=== PATIENT | male | born 1980 | race Caucasian/White ===

== ENCOUNTER 2021-10-16 12:19 | Emergency (ER) | payer OTHER, SELFPAY ==
--- NOTE | ~2021-10-16 | XR_ITS ---
XR lumbar spine 2-3V 10/16/2021 14:09 Indication: Low back pain Procedure: 3 views lumbar spine Comparison: No prior studies for comparison. Findings: There is mild disc narrowing at L5-S1. No fracture, subluxation or dislocation. No evidence for spondylolisthesis. Pedicles intact. There are changes of ventral abdominal wall hernia repair. T here is mild endplate degenerative change at L3-4 and L4-5. Impression: 1: Mild lumbar spondylosis. Reviewed, dictated and finalized at location A. 

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
[2021-10-16 12:35] VITALS: BP 131/88; PULSE 76; RESP 16; TEMP 36.6; O2SAT 100
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
[2021-10-16] MEDS: ONDANSETRON HCL ODT 4 MG TABLET PO (14:32)
[2021-10-16] MEDS: HYDROmorphone HCL INJ (*CRX) 2 MG/ML VIAL 1 MG IM (14:32)
--- NOTE | 2021-10-16 14:34 | PC.NURSE ---
patient states he has a ride home. rn to administer pain medication.
[2021-10-16 14:54] VITALS: BP 141/90; PULSE 78; RESP 16; TEMP 36.8; O2SAT 98
== END 2021-10-16 15:05 | disposition home or self-care (01) ==
PROVIDERS: Emergency Provider Internal Medicine Critical Care Medicine
DX: M47.812 Spondylosis without myelopathy or radiculopathy, cervical region (principal); M47.816 Spondylosis without myelopathy or radiculopathy, lumbar region
CPT/HCPCS: 72100; 72125; 96372; 99283; A9270; J1170

== ENCOUNTER 2021-12-09 08:51 | Outpatient (CLI) | payer OTHER, SELFPAY ==
--- NOTE | ~2021-12-09 | XR_ITS ---
EXAMINATION: XR wrist LT 2V EXAM DATE: 12/09/2021 09:16 INDICATION: Generalized wrist pain. TECHNIQUE: Left wrist frontal, frontal with ulnar deviation, oblique and lateral projections obtained and reviewed. Correlation is made to left hand x-ray 03/20/2017. 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 Lunate is oriented such that patient probably has dorsal intercalated segmental instability (DISI). There is development of mild to moderate radiocarp al joint osteoarthritis, appears to have progressed compared to 2017. This potentially could be postt raumatic etiology given scapholunate dissociation. There are no acute fractures or dislocations ident ified. There is no subcutaneous gas. The soft tissue is unremarkable. There are no radiopaque for eign bodies. IMPRESSION: 1. Scapholunate dissociation, DISI. 2. 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 Reviewed, dictated and finalized at location B.
[2021-12-09 09:09] LABS: Basophils Absolute Auto 0.03 K/mm3 (0.00-0.10); Basophils Percent Auto 0.6 % (0.0-1.0); Eosinophils Absolute Auto 0.08 K/mm3 (0.02-0.50); Eosinophils Percent Auto 1.5 % (1.0-6.0); Hematocrit 44.7 % (40.0-54.0); Hemoglobin 15.4 g/dL (14.0-18.0); Immature Granulocyte Absolute 0.01 K/mm3 (0.00-0.00); Immature Granulocyte Percent A 0.2 % (0.0-0.0); Lymphocytes Absolute Auto 1.79 K/mm3 (1.10-4.50); Lymphocytes Percent Auto 33.5 % (18.0-42.0); Mean Corpuscular HGB Conc 34.5 g/dL (32.0-36.0); Mean Corpuscular Hemoglobin 33.1 pg (27.0-31.0); Mean Corpuscular Volume 96.1 fL (78.0-102.0); Mean Platelet Volume 9.9 fl (8.7-11.0); Monocytes Absolute Auto 0.52 K/mm3 (0.10-0.90); Monocytes Percent Auto 9.7 % (2.0-11.0); Neutrophils Absolute Auto 2.9 K/mm3 (1.7-7.2); Neutrophils Percent Auto 54.5 % (50.0-70.0); Platelet Count Result 262 K/mm3 (150-420); Red Blood Count 4.65 M/mm3 (4.70-6.10); White Blood Count 5.3 K/mm3 (4.8-10.8)
[2021-12-09 09:39] LABS: Alanine Aminotransferase 23 U/L (16-63); Albumin Level 4.2 g/dL (3.4-5.0); Alkaline Phosphatase 83 U/L (46-116); Anion Gap 8 mmol/L (8-16); Aspartate Amino Transferase < 10 U/L (15-37); Bilirubin,Total 0.5 mg/dL (0.00-1.00); Blood Urea Nitrogen 20 mg/dL (7-18); Calcium 9.2 mg/dL (8.5-10.1); Carbon Dioxide 27 mmol/L (21-32); Chloride 103 mmol/L (98-108); Estimated Glomerular Filt Rate > 60; Glucose 101 mg/dL (70-99); Osmolality Calculated 288 mOsm/kg (285-295); Potassium 4.1 mmol/L (3.5-5.1); Sodium 138 mmol/L (136-145); Total Protein 6.9 g/dL (6.4-8.2)
[2021-12-13 16:21] LABS: Testosterone Free 99.8 pg/mL (35.0-155.0); Testosterone Total 670 ng/dL (250-1100)
[2021-12-13 18:03] LABS: Vitamin D 25 Hydroxy 19 ng/mL (30-100)
== END 2021-12-09 08:52 | disposition home or self-care (01) ==
LOC: CHSLAB 08:54
PROVIDERS: PCP Nurse Practitioner Family; Visit Provider Nurse Practitioner Family
DX: R53.83 Other fatigue (principal); F41.1 Generalized anxiety disorder
CPT/HCPCS: 36415; 73100; 80053; 82306; 84402; 84403; 85025

== ENCOUNTER 2022-04-24 11:34 | Outpatient (CLI) | payer SELFPAY ==
--- NOTE | ~2022-04-24 | XR_ITS ---
EXAM: XR lumbar spine 2-3V DATE: 04/24/2022 11:51 HISTORY: LT LEG SCIATICA,NKI,X1MO . COMPARISON: 10/16/2019. FINDINGS: 5 nonrib-bearing lumbar-type vertebral bodies. Pedicles intact. 3 mm retrolisthesis of L4 on L5. Vertebral body heights preserved. Mild L4-5 and moderate L5-S1 disc space narrowing and margin al osteophytosis. Normal facets and posterior elements. No fracture or dislocation. Hernia mesh soft tissue anchors. IMPRESSION: Grade 1 retrolisthesis of L4 on L5. Lower lumbar degenerative disc changes. Reviewed, dictated and finalized at location K.
== END 2022-04-24 11:35 | disposition home or self-care (01) ==
LOC: CHSIMG 11:36
PROVIDERS: PCP Family Medicine; Visit Provider Nurse Practitioner Family
DX: M54.30 Sciatica, unspecified side (principal)
CPT/HCPCS: 72100

== ENCOUNTER 2025-01-11 10:05 | Emergency (ER) | payer SELFPAY ==
--- NOTE | ~2025-01-11 | CT_ITS ---
Noncontrast CT scan of the lumbar spine CLINICAL HISTORY: Back pain radiating to buttock TECHNIQUE: Axial noncontrast imaging of the lumbar spine was performed. Sagittal and coronal reformat damian images were constructed. Dose reduction technique was used on this scan by utilizing automated ex posure control and iterative reconstruction technique. The dose-length product (DLP) was 355.26 mGy-c m. FINDINGS: There is straightening of the normal lumbar lordosis. No fracture seen. There is minimal gr jennifer 1 retrolisthesis of L4 over L5. At L1-L2, there is no disc bulge or herniation. There is mild facet hypertrophy. No spinal canal sten osis or neural foraminal narrowing. At L2-L3, there is no disc bulge or herniation. There is mild facet arthropathy. No central canal ashley nosis or neural foraminal narrowing. At L3-L4, there is mild disc bulge with mild to moderate facet hypertrophy. Probable minimal central canal stenosis. There is moderate to severe left neural foraminal narrowing, and mild to moderate rig ht neural foraminal narrowing. At L4-L5, there is degenerative disc narrowing. There is disc bulge and facet arthropathy. There is m ild central canal stenosis. There is moderate right neural foraminal narrowing, and mild left neural foraminal narrowing. At L5-S1, there is mild disc bulge and mild facet arthropathy. No central canal stenosis. There is mo derate to severe bilateral neural foraminal narrowing. Paravertebral soft tissues are unremarkable. Postoperative change noted at the rectum. Prior herniorr haphy at present. Impression: Moderate degenerative spondylosis from L3 through S1, as detailed above. Postoperative changes, as above. Reviewed, dictated and finalized at location M. Impression: Moderate degenerative spondylosis from L3 through S1, as detailed above. Postoperative changes, as above.
[2025-01-11 10:05] VITALS: BP 152/103; PULSE 101; RESP 16; TEMP 36.6; O2SAT 97
--- OUTSIDE RECORDS SUMMARY | 2025-01-11 10:08 | XMS_ITS | Continuity of Care Document ---
Author Organization [facility] Address [address] [place] [address] Phone Care Team Providers Care Director Cloud Transformation Name Role Phone Talia PT, DPT, Norm Unavailable Unavailable Advance Directives Directive Yes / No Effective Date File Name No Information Encounters Encounter Description Practice Location Reason(s) For Visit Diagnoses Date Provider Providers Copied on Encounter [facility], [address], [place], [place], [id number], [place] tel:[phone] [place] No Information 0 Talia Zheng. . Family History Family Member Type Diagnosis Age At Onset No Information Payers Payer name Insurance type Covered green party ID Authoriza tion(s) No Information Social History Type Description Quantity Date Captured Comments Sex Male Smoking Status No Information Chief Complaint And Reason For Visit No Information Reason For Referral Reason For Referral No Information History Of Present Illness Encounter Date Complaint History Of Prese nt Illness No Information Functional Status Date Functional Assessmen t No Information Instructions Date Instruction Additional Infor mation No Information Assessments Type Assessment Date No Information Patient Care Teams Name Effective Dates (start - stop) Status Members No Information
--- OUTSIDE RECORDS SUMMARY | 2025-01-11 10:08 | XMS_ITS | Clinical Summary ---
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 Gender Identity Not on file Sexual Orientation Not on file Last Filed Vital Signs Vital Sign Reading Time Taken Comments Blood Pressure 118/68 06/02/2021 8:01 AM CDT Pulse 76 06/02/2021 8:01 AM CDT Temperature 36.2 C (97.1 F) 06/02/2021 8:01 AM CDT Respiratory Rate 18 06/02/2021 8:01 AM CDT Oxygen Saturation 99% 06/02/2021 8:01 AM CDT Inhaled Oxygen Concentration - - Weight 81.6 kg (180 lb) 06/02/2021 8:01 AM CDT Height 175.3 cm (5' 9 ) 06/02/2021 8:01 AM CDT Body Mass Index 26.58 06/02/2021 8:01 AM CDT Plan of Treatment Health Maintenance Due Date Last Done Comments Annual Physical 01/06/1984 Hepatitis C 1999 DTaP, Tdap and Td Vaccines (2 - Tdap) 01/06/2000 07/24/1988, 08/18/1982, 1981, Additional history exists Hepatitis B Vaccines (1 of 3 - 19+ 3-dose series) 01/06/2000 COVID-19 Vaccine ( - season) 2024 10/14/2020, 09/23/2020 HPV Vaccines Aged Out No longer eligi ble based on patient's age to complete this topic Meningococcal B Vaccine Aged Out No l onger eligible based on patient's age to complete this topic Meningococcal Vaccine Aged Out No joanna eaomn eligible based on patient's age to complete this topic Pneumococcal Vaccine: Pediatrics (0 to 5 Years) and At-Risk Patients (6 to 49 Years) Aged Out No longer eligible based on patient's age to complete this topic RSV Immunizations Under 20 Months Aged Out No longer eligible based on patient's age to complete this topic Care Teams Jboss Developer Relationship Specialty Start Date End Date None, Provider, PCP - General 05/23/21
--- NOTE | 2025-01-11 10:15 | ED.GENADULT ---
HPI - General Adult General Chief complaint: Back Pain/Injury Stated complaint: back pain History of Present Illness HPI narrative: Dionisio is a 45M with a history of chronic back pain that presented to the ED with low back pain for a few days. It is severe low back pain that radiates to the buttock bilaterally. No weakness paralysis, or loss of bowel or bladder control. He also reports dependence to ativan and has struggled with opiates in the past. He has not had ativan for days and is anxious, tremulous, has a headache and some palpitations. Related Data Allergies Allergy/AdvReac Type Severity Reaction Status Date / Time No Known Allergies Allergy Verified 08/22/24 13:04 Review of Systems Review of Systems: All systems reviewed & are unremarkable except as noted in HPI and below PMFSH Past Medical History Medical History Arthritis Intestinal anastomosis present ileal rectal anastomosis Ulcerative colitis Asthma HAYDE (generalized anxiety disorder) Surgical History Surgical History History of hernia surgery History of total colectomy (~2005) Family History Family History Father Healthy adult Mother Healthy adult Other Diabetes mellitus Social History Social History Smoking status: Former smoker Tobacco type: cigarettes Additional smoking assessment comments: Quit smoking in 2004 Alcohol intake: current Substance use type: does not use Living arrangements: with family Additional living arrangements comments: . 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 [employer] Gender identity (if verbalized by the patient): Male Exam Const: General: cooperative, healthy appearing, comfortable, no acute distress, well developed, alert, awake and Physically active Orientation/consciousness: oriented to person, oriented to place and oriented to time HENMT: Head: normal to inspection, normocephalic and atraumatic Ears: hearing grossly normal bilaterally and external ears normal Face/Nose/Sinus: Normal external nose present Eyes: General: appearance normal, both eyes and all related structures Periorbital: periorbital findings normal Sclera: sclerae normal Pupils: Equal, round and reactive pupils present Neck: Neck: normal visual inspection Chest: Chest palpation & inspection: normal inspection of the chest Resp: Effort & Inspection: normal respiratory effort, able to speak in complete sentences and no respiratory distress Cardio: Jugular venous distension: no JVD Back/Spine/Pelvis: Other: Decreased ROM in the lumbar spine Skin: General skin exam: normal color and no rashes or lesions noted Neuro: General: oriented to person, oriented to place and oriented to time Cranial nerves: Yes Equal, round and reactive pupils present Other: -normal strenth in the lower extremities. Extrem: General: normal to inspection Course Course Emergency Course: Given steroids, toradol and ativan. Noncontrast CT scan of the lumbar spine CLINICAL HISTORY: Back pain radiating to buttock TECHNIQUE: Axial noncontrast imaging of the lumbar spine was performed. Sagittal and coronal reformatted images were constructed. Dose reduction technique was used on this scan by utilizing automated exposure control and iterative reconstruction technique. The dose-length product (DLP) was 355.26 mGy-cm. FINDINGS: There is straightening of the normal lumbar lordosis. No fracture seen. There is minimal grade 1 retrolisthesis of L4 over L5. At L1-L2, there is no disc bulge or herniation. There is mild facet hypertrophy. No spinal canal stenosis or neural foraminal narrowing. At L2-L3, there is no disc bulge or herniation. There is mild facet arthropathy. No central canal stenosis or neural foraminal narrowing. At L3-L4, there is mild disc bulge with mild to moderate facet hypertrophy. Probable minimal central canal stenosis. There is moderate to severe left neural foraminal narrowing, and mild to moderate right neural foraminal narrowing. At L4-L5, there is degenerative disc narrowing. There is disc bulge and facet arthropathy. There is mild central canal stenosis. There is moderate right neural foraminal narrowing, and mild left neural foraminal narrowing. At L5-S1, there is mild disc bulge and mild facet arthropathy. No central canal stenosis. There is moderate to severe bilateral neural foraminal narrowing. Paravertebral soft tissues are unremarkable. Postoperative change noted at the rectum. Prior herniorrhaphy at present. Impression: Moderate degenerative spondylosis from L3 through S1, as detailed above. Postoperative changes, as above. Pain most likely from the degeneration. Given steroids and gabapentin to help with this. Discussed OTC meds. Gave ativan as he is likely going through withdrawal. We discussed how abrupt cessation could lead to seizure. Sent a very short dose of ativan to help with the withdrawal. Gabapentin will help with this as well. Vital Signs Vital signs: Vital Signs Temperature 97.9 F 01/11/25 10:05 Pulse Rate 101 H 01/11/25 10:05 Respiratory Rate 16 01/11/25 10:05 Blood Pressure 152/103 H 01/11/25 10:05 Pulse Oximetry 97 01/11/25 10:05 Oxygen Delivery Room Air 01/11/25 10:05 Temperature 97.9 F 01/11/25 10:05 Pulse Rate 83 01/11/25 11:09 Respiratory Rate 16 01/11/25 11:09 Blood Pressure 127/75 01/11/25 11:09 Pulse Oximetry 96 01/11/25 11:09 Oxygen Delivery Room Air 01/11/25 11:09 Medical Decision Making Vital Signs Vital Signs: Vital Signs Temperature 97.9 F 01/11/25 10:05 Pulse Rate 101 H 01/11/25 10:05 Respiratory Rate 16 01/11/25 10:05 Blood Pressure 152/103 H 01/11/25 10:05 Pulse Oximetry 97 01/11/25 10:05 Oxygen Delivery Room Air 01/11/25 10:05 Temperature 97.9 F 01/11/25 10:05 Pulse Rate 83 01/11/25 11:09 Respiratory Rate 16 01/11/25 11:09 Blood Pressure 127/75 01/11/25 11:09 Pulse Oximetry 96 01/11/25 11:09 Oxygen Delivery Room Air 01/11/25 11:09 Lab Data 01/11/25 10:59 01/11/25 10:59 Labs: Lab Results 01/11/25 Range/Units 10:59 WBC 7.7 (4.8-10.8) K/mm3 RBC 4.75 (4.70-6.10) M/mm3 Hgb 16.1 (14.0-18.0) g/dL Hct 45.6 (40.0-54.0) % MCV 96.0 (78.0-102.0) fL MCH 33.9 H (27.0-31.0) pg MCHC 35.3 (32-36) g/dL RDW 11.2 L (11.6-14.4) % Plt Count 332 (150-420) K/mm3 MPV 9.4 (8.7-11.0) fl Immature Gran % (Auto) 0.3 H (0.0-0.0) % Neut % (Auto) 69.8 (50.0-70.0) % Lymph % (Auto) 21.8 (18.0-42.0) % [place] % (Auto) 7.2 (2.0-11.0) % Eos % (Auto) 0.5 L (1.0-6.0) % Baso % (Auto) 0.4 (0.0-1.0) % Lymph # (Auto) 1.67 (1.10-4.50) K/mm3 [place] # (Auto) 0.55 (0.10-0.90) K/mm3 Eos # (Auto) 0.04 (0.02-0.50) K/mm3 Baso # (Auto) 0.03 (0.00-0.10) K/mm3 Abs Immat Gran (auto) 0.02 H (0.00-0.00) K/mm3 Absolute Neuts (auto) 5.36 (1.70-7.20) K/mm3 Absolute Nucleated RBC 0.00 (0.00-0.00) K/mm3 Nucleated RBC % 0.0 (0-0.0) % Sodium 138 (136-145) mmol/L Potassium 4.1 (3.5-5.1) mmol/L Chloride 100 (98-108) mmol/L Carbon Dioxide Pending Anion Gap Pending BUN 18 (7-18) mg/dL Creatinine 1.13 (0.70-1.30) mg/dL Estim Creat Clear Calc 74 ml/min Estimated GFR > 60 (59 - ) Glucose 101 H (70-99) mg/dL Calculated Osmolality 287 (285-295) mOsm/kg Calcium 9.5 (8.5-10.1) mg/dL Total Bilirubin 0.9 (0.00-1.00) mg/dL AST 11 L (15-37) U/L ALT 29 (16-63) U/L Alkaline Phosphatase 66 (46-116) U/L Total Protein 7.5 (6.4-8.2) g/dL Albumin 4.3 (3.4-5.0) g/dL Discharge Plan Discharge Clinical Impression: Low back pain Patient Disposition: Home Condition: Serious Instructions: Acute Low Back Pain (ED) Additional Instructions: Follow up early next week at [facility]. Patient Language: [place] Islander Prescriptions: New prednisone 10 mg tablet 10 mg PO DIRECTED Qty: 15 0RF Rx Instructions: 5-4-3-2-1 gabapentin 100 mg capsule 100 mg PO TID Qty: 30 0RF lorazepam [Ativan] 0.5 mg tablet 0.5 mg PO DAILY PRN (Reason: anxiety) Qty: 3 0RF No Action sertraline 25 mg tablet 25 mg PO DAILY Qty: 90 2RF albuterol sulfate [Ventolin HFA] 90 mcg/actuation HFA aerosol inhaler 1 puff INHALATION Q4H PRN (Reason: shortness of breath or wheezing) Qty: 18 3RF Follow-up/Referrals: Gretchen Giraldo APRN [Advanced Practice Nurse] - Stand Alone Forms: Work/School Release IP
--- OUTSIDE RECORDS SUMMARY | 2025-01-11 10:21 | XMS_ITS | Continuity of Care Document ---
Author Organization [facility] Address [address] [place] [address] Phone Care Team Providers Care Carpet Repairer Name Role Phone Talia PT, DPT, Norm Unavailable Unavailable Advance Directives Directive Yes / No Effective Date File Name No Information Encounters Encounter Description Practice Location Reason(s) For Visit Diagnoses Date Provider Providers Copied on Encounter [facility], [address], [place], [place], [id number], [place] tel:[phone] [place] No Information 0 Talia Zheng. . Family History Family Member Type Diagnosis Age At Onset No Information Payers Payer name Insurance type Covered alliance party ID Authoriza tion(s) No Information Social [...]
[2025-01-11] MEDS: GABAPENTIN 300 MG CAPSULE PO (10:22)
[2025-01-11] MEDS: LORazepam (*CRX) 0.5 MG TABLET PO (10:22)
[2025-01-11] MEDS: predniSONE 20 MG TABLET 60 MG PO (10:22)
[2025-01-11 11:07] LABS: Basophils Absolute Auto 0.03 K/mm3 (0.00-0.10); Basophils Percent Auto 0.4 % (0.0-1.0); Eosinophils Absolute Auto 0.04 K/mm3 (0.02-0.50); Eosinophils Percent Auto 0.5 % (1.0-6.0); Hematocrit 45.6 % (40.0-54.0); Hemoglobin 16.1 g/dL (14.0-18.0); Immature Granulocyte Absolute 0.02 K/mm3 (0.00-0.00); Immature Granulocyte Percent A 0.3 % (0.0-0.0); Lymphocytes Absolute Auto 1.67 K/mm3 (1.10-4.50); Lymphocytes Percent Auto 21.8 % (18.0-42.0); Mean Corpuscular HGB Conc 35.3 g/dL (32-36); Mean Corpuscular Hemoglobin 33.9 pg (27.0-31.0); Mean Platelet Volume 9.4 fl (8.7-11.0); Monocytes Absolute Auto 0.55 K/mm3 (0.10-0.90); Monocytes Percent Auto 7.2 % (2.0-11.0); Neutrophils Absolute Auto 5.36 K/mm3 (1.70-7.20); Neutrophils Percent Auto 69.8 % (50.0-70.0); Platelet Count Result 332 K/mm3 (150-420); Red Blood Count 4.75 M/mm3 (4.70-6.10); Red Cell Distribution Width 11.2 % (11.6-14.4); White Blood Count 7.7 K/mm3 (4.8-10.8)
[2025-01-11 11:09] VITALS: BP 127/75; PULSE 83; RESP 16; O2SAT 96
[2025-01-11 11:21] LABS: Alanine Aminotransferase 29 U/L (16-63); Albumin Level 4.3 g/dL (3.4-5.0); Alkaline Phosphatase 66 U/L (46-116); Aspartate Amino Transferase 11 U/L (15-37); Bilirubin,Total 0.9 mg/dL (0.00-1.00); Blood Urea Nitrogen 18 mg/dL (7-18); Calcium 9.5 mg/dL (8.5-10.1); Chloride 100 mmol/L (98-108); Estimated CRCL calculation 74 ml/min; Estimated Glomerular Filt Rate > 60; Glucose 101 mg/dL (70-99); Osmolality Calculated 287 mOsm/kg (285-295); Potassium 4.1 mmol/L (3.5-5.1); Sodium 138 mmol/L (136-145); Total Protein 7.5 g/dL (6.4-8.2)
[2025-01-11 11:53] LABS: Anion Gap 15 mmol/L (4-12); Carbon Dioxide 23 mmol/L (21-32)
[2025-01-11 12:14] VITALS: BP 123/85; PULSE 69; RESP 20; TEMP 36.9; O2SAT 97
== END 2025-01-11 12:14 | disposition home or self-care (01) ==
PROVIDERS: Emergency Provider Family Medicine; PCP Family Medicine
DX: M54.50 Low back pain, unspecified (principal); Z87.891 Personal history of nicotine dependence
CPT/HCPCS: 36415; 72131; 80053; 85025; 99284; A9270; J7512